=== PATIENT | female | born 1970 | race Two or more races ===

== ENCOUNTER 2019-01-22 14:03 | Emergency (ER) | payer MEDICAID, OTHER ==
[~2019-01-22] VITALS: Ht 147.3 cm; Wt 82.0 kg
[2019-01-22] MEDS ORDERED: KETOROLAC 60MG/2ML VIAL IM ONE (16:15)
[2019-01-22 18:00] VITALS: BP 131/81
== END 2019-01-22 18:13 | disposition home or self-care (01) ==
LOC: ER 14:03
DX: S70.02XA Contusion of left hip, initial encounter (principal); W22.8XXA Striking against or struck by other objects, initial encounter; Y93.89 Activity, other specified; Y92.89 Other specified places as the place of occurrence of the external cause; Y99.8 Other external cause status
CPT/HCPCS: 72170; 96372; 99283; J1885

== ENCOUNTER 2019-06-13 11:53 | Emergency (ER) | payer MEDICAID, OTHER ==
[~2019-06-13] VITALS: Ht 147.3 cm; Wt 80.0 kg
[2019-06-13 12:01] VITALS: BP 166/90
== END 2019-06-13 13:00 | disposition left against medical advice (07) ==
LOC: ER 12:00
DX: R55 Syncope and collapse (principal); R07.89 Other chest pain; R42 Dizziness and giddiness; R51 Headache; R20.0 Anesthesia of skin; I10 Essential (primary) hypertension
CPT/HCPCS: 99283

== ENCOUNTER 2022-12-26 12:00 | Emergency (ER) | payer MEDICAID, OTHER ==
[~2022-12-26] VITALS: Ht 149.9 cm; Wt 111.0 kg
[2022-12-26 12:11] VITALS: TEMP 98.9; O2SAT 98
[2022-12-26] MEDS ORDERED: KETOROLAC 30MG/ML VIAL IM ONE (13:00)
[2022-12-26] MEDS ORDERED: NAPR-1176 MT (15:05)
[2022-12-26 15:15] VITALS: BP 158/82; PULSE 81
[2022-12-26] MEDS ORDERED: IBUPROFEN 600MG TABLET PO ONE (15:15)
== END 2022-12-26 15:39 | disposition home or self-care (01) ==
LOC: ER 12:31
DX: M25.561 Pain in right knee (principal); I10 Essential (primary) hypertension; Z98.890 Other specified postprocedural states
CPT/HCPCS: 99283; 81025; 73562; J1885

== ENCOUNTER 2024-10-26 11:55 | Emergency (ER) | payer MEDICAID ==
[~2024-10-26] VITALS: Ht 147.3 cm; Wt 123.0 kg
[~2024-10-26 11:55] MED LIST: NAPR-1176 MT
[2024-10-26 12:00] VITALS: PULSE 104; RESP 18; O2SAT 100
[2024-10-26 12:10] VITALS: BP 156/73; TEMP 36.9; O2SAT 98
[2024-10-26 12:47] LABS: BASOPHILS % 0.5 % (0.0-2.0); EOSINOPHILS % 3.1 % (0.0-5.0); HEMATOCRIT. 41.0 % (36.0-48.0); HEMOGLOBIN. 13.6 g/dL (12.0-16.0); LYMPHOCYTES % 39.1 % (20.0-50.0); MEAN PLATELET VOLUME 6.9 fl (7.4-10.4); MONOCYTES % 8.9 % (2.0-8.0); NEUTROPHILS % 48.4 % (40.0-76.0); PLATELET 282 x1000/uL (130-400); RED BLOOD CELL COUNT 4.66 mill/uL (4.2-5.4); RED CELL DISTRIBUTION WIDTH 14.3 % (11.6-14.6)
[2024-10-26 13:07] LABS: CREATININE 0.6 mg/dL (0.6-1.0); UREA NITROGEN BLOOD 11 mg/dL (9-23)
[2024-10-26 13:08] LABS: TROPONIN I HIGH SENSITIVITY 5 ng/L (3.0-34)
[2024-10-26] MEDS ORDERED: METH-653 MT (13:58)
[2024-10-26] MEDS ORDERED: IBUP-2029 MT (13:58)
== END 2024-10-26 14:13 | disposition home or self-care (01) ==
LOC: ER 11:55
DX: R07.89 Other chest pain (principal); R51.9 Headache, unspecified; Z79.1 Long term (current) use of non-steroidal anti-inflammatories (NSAID); I10 Essential (primary) hypertension; Z79.899 Other long term (current) drug therapy; Z98.890 Other specified postprocedural states
CPT/HCPCS: 36415; 71045; 80048; 84484; 85025; 93005; 99285